=== PATIENT | male | born 1935 | race Caucasian/White ===

== ENCOUNTER 2022-12-25 10:35 | Day surgery (SDC) | payer MEDICARE, SELFPAY ==
--- NOTE | 2022-12-25 11:28 | W.ANESPRE ---
General Info Height: 5 ft 6 in Weight: 72.575 kg Body Mass Index (BMI): 25.8 Surgical Procedure: Operation Date: 12/25/22 12:55 Proposed Procedure Side Surgeon p Cataract Extraction with IOL Implant Left Lan Marcano MD Meds Allergies and Home Medications Allergies Allergy/AdvReac Type Severity Reaction Status Date / Time No Known Allergies Allergy Unverified 12/22/22 12:17 Home Medication Medication Instructions Recorded aspirin 81 mg capsule,delayed 81 mg PO DAILY 12/22/22 release atorvastatin 40 mg tablet 40 mg PO DAILY 12/22/22 calcium carbonate 600 mg calcium 600 mg PO BID 12/22/22 (1,500 mg) tablet fluticasone 250 mcg-salmeterol 50 1 inh inhalation BID 12/22/22 mcg/dose blistr powdr for inhalation (Advair Diskus) montelukast 10 mg tablet 10 mg PO DAILY 12/22/22 multivitamin 1 tab PO DAILY 12/22/22 Current Visit Medications: Current Medications Generic Name Dose Route Start Last Admin Trade Name Freq PRN Reason Stop Dose Admin Acetaminophen 1,000 mg 12/25/22 06:00 Acetaminophen 500 Mg Tab PO Q4H PRN PRN Miscellaneous Medication 0 ml 12/25/22 06:00 Tropicam./Phenyleph. 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 [place] [facility] [place] f/u per pt. Allergic rhinitis Asthma Cataract COPD (chronic obstructive pulmonary disease) [place] Disorder of oral soft tissue pt. denies this Disorder of skin and subcutaneous tissue Diverticular disease Elevated blood pressure reading in office without diagnosis of hypertension Epistaxis Excessive thirst Agueda type 2a hyperlipoproteinemia Insomnia Primary malignant neoplasm of prostate Raised prostate specific antigen Sleep disorder Tinnitus Tracheobronchitis Type 2 diabetes mellitus without complication Urticaria Tobacco Smoking/Tobacco Use Status: Never Alcohol Alcohol Intake: never Substance Use Substance use: Never Substance use type: does not use Vital Signs and Lab Results Lab Results Blood Type / Crossmatch: No Data to Display Complete Blood Count: No Data to Display Complete Metabolic Panel: No Data to Display Liver Function Panel: No Data to Display Coagulation Panel: No Data to Display Cardiac Panel: No Data to Display Arterial Blood Gas: No Data to Display Venous Blood Gas: No Data to Display Pancreas Panel: No Data to Display Thyroid Panel: No Data to Display Infectious Disease: No Data to Display Blood Cultures: No Data to Display Toxicology Panel: No Data to Display Imaging and Studies Imaging and Studies Study information below may be from another EMR and interpreted by another provider. Please see original notes in EMR for more complete details. Echocardiogram Summary: 09/20/21 echo reviewed from [facility] in [facility]; EF 65% no valvular disease, please review in [facility] CT Summary: 05/19/22 CT angio abdomen & pelvis review; AAA stable post repair with no endovascular leak present. Please review in [facility] records in [facility] Anesthesia Assessment and Plan Anesthesia History Personal History: No History of Anesthesia Complications Family History: No Family History of Anesthesia Complications Exercise Tolerance Exercise Tolerance: Metabolic Equivalents>4 Pertinent Negatives Pertinent Negatives: No Symptoms of GERD and No Major Pulmonary Symptoms or Complaints Cardiac & Pulmonary Exam Cardiac Exam: Normal S1/S2 Heart Sounds Pulmonary Exam: Clear Bilateral Breath Sounds Implantable Cardiac Device Does patient have a Pacemaker or an ICD?: No Airway Exam Mallampati Class: 2 Mouth Opening: Normal (> 3cm) Thyromental Distance: Greater than 3 cm Neck Range of Motion: Full ROM Neck Circumference: Normal Teeth Condition: Normal Dentition ASA Classification ASA Score: ASA 3 NPO Status NPO Status: NPO Clears >2 hours, Solids >8 hours Anesthesia Plan Resuscitation Status: Full Code Anesthesia Technique: MAC Anesthesia Airway Planned: Natural Airway Monitors Used: Standard Monitors
[2022-12-25] MEDS: Tropicam./Phenyleph. (1/2.5%) 5 ML BTL OS ×3 (11:45→12:00)
[2022-12-25 11:47] VITALS: BP 187/74; PULSE 62; RESP 18; TEMP 36.5; O2SAT 95
--- NOTE | 2022-12-25 11:57 | W.ANESPRE ---
General Info Date of Service Date Performed: 12/25/22 Height: 5 ft 6 in Weight: 71.6 kg Body Mass Index (BMI): 25.4 Surgical Procedure: Operation Date: 12/25/22 12:55 Proposed Procedure Side Surgeon p Cataract Extraction with IOL Implant Left Lan Marcano MD Meds Allergies and Home Medications Allergies Allergy/AdvReac Type Severity Reaction Status Date / Time No Known Allergies Allergy Unverified 12/22/22 12:17 Home Medication Medication Instructions Recorded aspirin 81 mg capsule,delayed 81 mg PO DAILY 12/22/22 release atorvastatin 40 mg tablet 40 mg PO DAILY 12/22/22 calcium carbonate 600 mg calcium 600 mg PO BID 12/22/22 (1,500 mg) tablet fluticasone 250 mcg-salmeterol 50 1 inh inhalation BID 12/22/22 mcg/dose blistr powdr for inhalation (Advair Diskus) montelukast 10 mg tablet 10 mg PO DAILY 12/22/22 multivitamin 1 tab PO DAILY 12/22/22 Current Visit Medications: Current Medications Generic Name Dose Route Start Last Admin Trade Name Freq PRN Reason Stop Dose Admin Acetaminophen 1,000 mg 12/25/22 06:00 Acetaminophen 500 Mg Tab PO Q4H PRN PRN Miscellaneous Medication 0 ml 12/25/22 06:00 12/25/22 11:52 Tropicam./Phenyleph. 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 [facility] [place] per pt. Allergic rhinitis Asthma Cataract COPD (chronic obstructive pulmonary disease) [place] Disorder of oral soft tissue pt. denies this Disorder of skin and subcutaneous tissue Diverticular disease Elevated blood pressure reading in office without diagnosis of hypertension Epistaxis Excessive thirst Agueda type 2a hyperlipoproteinemia Insomnia Primary malignant neoplasm of prostate Raised prostate specific antigen Sleep disorder Tinnitus Tracheobronchitis Type 2 diabetes mellitus without complication Urticaria Tobacco Smoking/Tobacco Use Status: Never Alcohol Alcohol Intake: never Substance Use Substance use: Never Substance use type: does not use Vital Signs and Lab Results Vital Signs Most Recent Vital Signs in EMR: Most Recent Vital Signs Temp Pulse Resp BP Pulse Ox 36.5 C 62 18 187/74 H 95 12/25/22 11:47 12/25/22 11:47 12/25/22 11:47 12/25/22 11:47 12/25/22 11:47 Lab Results Blood Type / Crossmatch: No Data to Display Complete Blood Count: No Data to Display Complete Metabolic Panel: No Data to Display Liver Function Panel: No Data to Display Coagulation Panel: No Data to Display Cardiac Panel: No Data to Display Arterial Blood Gas: No Data to Display Venous Blood Gas: No Data to Display Pancreas Panel: No Data to Display Thyroid Panel: No Data to Display Infectious Disease: No Data to Display Blood Cultures: No Data to Display Toxicology Panel: No Data to Display Imaging and Studies Imaging and Studies Study information below may be from another EMR and interpreted by another provider. Please see original notes in EMR for more complete details. Echocardiogram Summary: 09/20/21 echo reviewed from [facility] in [facility]; EF 65% no valvular disease, please review in [facility] CT Summary: 05/19/22 CT angio abdomen & pelvis review; AAA stable post repair with no endovascular leak present. Please review in [facility] records in [facility] Anesthesia Assessment and Plan Anesthesia History Personal History: No History of Anesthesia Complications Family History: No Family History of Anesthesia Complications Exercise Tolerance Exercise Tolerance: Metabolic Equivalents>4 Pertinent Negatives Pertinent Negatives: No Symptoms of GERD Cardiac & Pulmonary Exam Cardiac Exam: Normal S1/S2 Heart Sounds and Known Innocent Murmur Pulmonary Exam: Clear Bilateral Breath Sounds Implantable Cardiac Device Does patient have a Pacemaker or an ICD?: No Airway Exam Known Difficult Airway: No Mallampati Class: 2 Mouth Opening: Normal (> 3cm) Thyromental Distance: Greater than 3 cm Neck Range of Motion: Full ROM Neck Circumference: Normal Teeth Condition: Normal Dentition ASA Classification ASA Score: ASA 3 Emergency Case?: No NPO Status NPO Status: NPO Clears >2 hours, Solids >8 hours Anesthesia Plan Resuscitation Status: Full Code Anesthesia Technique: MAC Anesthesia Airway Planned: Natural Airway Monitors Used: Standard Monitors Preoperative Comments:: Had aortic aneurysm repair 09/25. No issues of late. Confirmed with Dr Marcano surgery may be longer. Gave MKO due to elevated BP. Pt agrees.
[2022-12-25 12:03] VITALS: BP 191/87; PULSE 63
[2022-12-25 12:20] VITALS: BMI 25.4
[2022-12-25] MEDS: Tetracaine 0.5% 4 ML BTL OS (12:47)
[2022-12-25] MEDS: Balanced Salt Soln.-PLUS 500 ML BAG (12:47)
[2022-12-25] MEDS: Lidocaine 2% Jelly 6 ML SYR (12:48)
[2022-12-25] MEDS: Duovisc Viscoelastic System EACH 1 EACH (12:48)
[2022-12-25] MEDS: Povidone-Iodine Ophth 30 ML BTL (12:49)
[2022-12-25] MEDS: Trypan Blue 0.06% 0.5 ML SYR (12:49)
[2022-12-25] MEDS: Phenylephrine/Lidocaine (15/10) MG/ML 1 ML VIAL (12:49)
[2022-12-25] MEDS: Lidocaine 1% Pres-Free 5 ML VIAL (12:50)
[2022-12-25 13:41] VITALS: BP 171/80; PULSE 64; RESP 16; TEMP 37; O2SAT 95
--- NOTE | 2022-12-25 13:42 | PDOC.DSDIS_ITS ---
Date of service: 12/25/22 Time of Service: 13:42 Discharge Plan Disposition Patient Disposition: Home Discharge Details Attending Provider: Lan Marcano Primary Care Provider: Eduar [facility] Meds and New Rx's Prescriptions: No Action atorvastatin 40 mg Tablet 40 mg PO DAILY fluticasone propion-salmeterol [Advair Diskus] 250-50 mcg/dose Blister With Device 1 inh INHALATION BID aspirin 81 mg Capsule,Delayed Release(Dr/Ec) 81 mg PO DAILY multivitamin Tablet 1 tab PO DAILY calcium carbonate 600 mg calcium (1,500 mg) Tablet 600 mg PO BID montelukast 10 mg Tablet 10 mg PO DAILY Discharge Instructions Stand Alone Forms: Post-op Topical Cataract, Autumn Comer (DSU) Discharge Orders Discharge Orders: Discharge Order (Routine); Ordered 12/25/22 Ordered By: Lan Marcano DS: Diagnosis Discharge Diagnosis (1) Nuclear age-related cataract, left eye: Status: Resolved
--- NOTE | 2022-12-25 13:43 | ROE_ITS ---
Date of service: 12/25/22 Time of Service: 13:43 Operative Note Operative Note DATE OF PROCEDURE: 12/25/22 PRE-OP DIAGNOSIS: Dense nuclear cataract, left eye Poorly dilating pupil, left eye Absent red reflex, left eye POST-OP DIAGNOSIS: same PROCEDURE: Cataract extraction using phacoemulsification with intraocular lens implant, left eye SURGEON: Lan Marcano ANESTHESIA TYPE: Local By Surgeon and MAC Refer to Anesthesia Record PATHOLOGY: none sent COMPLICATIONS: None Patient was transported to: same day Patient's condition: stable Implants: Marshal and Marshal Tecnis Eyhance [id number] Indications: Progressive decreased vision due to cataract, left eye Procedure Description: CATARACT SURGERY OPERATIVE REPORT PREOPERATIVE DIAGNOSIS: 1. Dense nuclear cataract, left eye 2. Poorly dilating pupil, left eye 3. Absent red reflex, left eye secondary to cataract POSTOPERATIVE DIAGNOSIS: Same OPERATION: 1. Cataract extraction using phacoemulsification with posterior chamber intraocular lens implant, left eye. 2. Very dilation and iris stabilization with 6.25 mm pupillary expansion device 3. Capsular staining with VisionBlue IOL: IOL Field Service Technician Poultry/Model: Marshal & Marshal Tecnis Eyhance DIB00 IOL Power: + 30.0 diopters IOL Serial Number: [id number] Optic Diameter: 6.0 mm Haptic/Overall Diameter: 13.0 mm PHACO INFO: Junior Centurion Vision System with OZil and Active Fluidics Cumulative Dispersed Energy (CDE): 43.36 seconds SURGEON: Lan Marcano MD, SUNDAR ANESTHESIA: Monitored A [facility] (MAC), with local sub-tenon's anesthetic infiltration COMPLICATIONS: None SPECIMENS: None INDICATIONS FOR PROCEDURE: The patient is an 87-year-old gentleman with 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 He has previously undergone cataract surgery in the right eye in approximately 2009. He has developed a very dense nuclear cataract in the left eye with shallow anterior chamber. He has a history of amblyopia, so postoperative visual acuity will be significantly limited by the pre-existing amblyopia. However, cataract surgery is suggested in attempt to reduce the risk of acute angle-closure glaucoma, and development of hypermature cataract with phacolytic glaucoma. PROCEDURE: The correct surgical eye was identified and marked as the left eye and the pupil was dilated in the preoperative area using mydriatics and cycloplegics. The dilated pupil size was 4.5 to continue mm. Oral sedation was administered in the form of an Imprimis MKO Melt (midazolam 3mg/ketamine 25mg/ondansetron 2mg). The patient was brought to the operating room where cardiopulmonary monitoring was instituted and surgical time-out was performed, confirming the correct operative eye and IOL power. Topical anesthesia was administered and ophthalmic povidone-iodine 5% was i nstilled into the conjunctival fornices. Lidocaine gel was applied to the cornea and the luis-ocular area was prepped with Betadine 10% solution and draped in the usual sterile fashion for intraocular surgery, including an aperture drape. A Tegaderm transparent film dressing was cut in half and used to cover the lashes and lid margins. Care was taken to sequester the lashes and lid margins under the Tegaderm dressing. A lid speculum was placed between the lids of the operative eye and the Junior LuxOR Revalia operating microscope was maneuvered into position. The cornea was noted to have dense peripheral arcus, with a significant generalized haze as well. Visualization of the anterior chamber was poor. Diane scissors were then used to make a conjunctival buttonhole approximately 6mm posterior to the limbus in the inferonasal quadrant. Blunt dissection was carried out to expose bare sclera, and a blunt-tipped sub-tenon?s anesthesia cannula was introduced and passed posteriorly along the globe where non- preserved plain lidocaine was injected into posterior sub-Tenon?s space. A sideport knife was used to make a paracentesis port superiorly/superiortemporally. Intraocular phenylephrine/lidocaine was injected int the anterior chamber.. The anterior chamber was filled with viscoelastic. A keratome knife was used to construct a 2-plane near-clear corneal tunnel extending 2.0mm into clear cornea temporally. A 6.25 mm pupil expansion device was inserted into the pupillary space and engaged with the Kuglen hook. The irrigation/aspiration handpiece was then used to remove the viscoelastic and the anterior chamber. Air was then injected into the anterior chamber, followed by VisionBlue which was painted over the anterior lens capsule and then irrigated out with balanced salt solution. A flap was raised on the anterior capsule and capsulorhexis forceps were used to complete a continuous curvilinear capsulorhexis of 5.0 mm. The anterior capsule was noted to be quite thin with significant generalized zonular laxity. Balanced salt solution was then used to perform cortical cleaving hydrodissection and nuclear hydrodelineation until the lens could be freely ro tated within the capsular bag. The lens nucleus was then disassembled and removed within the capsular bag and iris plane using phacoemulsification. A deep central groove was initially sculpted into the nucleus and nuclear splitters were used to crack the nucleus into 2 halves, at which point additional Viscoat was injected into the anterior chamber and additional Westlake dissection was carried out. The lens was rotated 180 degrees and cracked again. The nucleus was then rotated 90 degrees and another deep groove was sculpted into 1 Stepan nucleus and nuclear splitters were then used to crack into quadrants. Multiple subchops were then used to break the nuclear quadrants into smaller fragments, under the protection of additional Viscoat. Residual cortical material was removed using the 45-degree angled silicone I/A tip with 0.3mm port. There was essentially no residual cortical material after nucleus removal.. The capsular bag was then inflated and the anterior chamber deepened with viscoelastic. The lens implant described above was inserted into the capsular bag using the Marshal and Marshal Simplicity pre-loaded injector. . A Kuglen hook was used to dial the IOL into position. The pupil expansion device was then removed in the reverse order of its insertion. Residual viscoelastic was then removed first from posterior to the IOL, then from the anterior chamber using the I/A handpiece. The lens implant was noted to center nicely within the capsular bag. The incisions were stromally hydrated, and the anterior chamber was reformed using BSS. Then 0.5cc of moxifloxacin 1.0mg/ml were injected into the capsular bag and anterior chamber. The incisions were checked with a Weck spear and found to be secure. Several drops of ophthalmic povidone-iodine 5% were then applied to the eye followed by two drops of Imprimis combination prednisolone/moxifloxacin/nepafenac solution. The drapes were removed and a clear plastic protective eye shield was placed over the eye. The patient was then returned to Same Day Surgery in stable condition.
--- NOTE | 2022-12-25 14:01 | ANES.POST_ITS ---
Postoperative Evaluation Date, Time and Location Date Performed: 12/25/22 Time Performed: 14:01 Patient Location: Day Surgery Unit Vital Signs Most Recent Imported Vital Signs: Most Recent Vital Signs Temp Pulse Resp BP Pulse Ox 37 C 64 16 171/80 H 95 12/25/22 13:41 12/25/22 13:41 12/25/22 13:41 12/25/22 13:41 12/25/22 13:41 Pain Score Most Recent Pain Score: Most Recent Pain Score Pain Level 0 12/25/22 13:41 Assessment Mental Status: Awake (Alert & Oriented to Patient Baseline) Airway and Respiratory Function: Patent airway with normal (patient baseline) respiratory exam Cardiovascular Function: Hemodynamically Stable Hydration Status: Adequately Hydrated Nausea & Vomiting: No Nausea or Vomiting Pain: Pt. Denies Any Pain Peripheral Nerve Block: Patient did not receive a nerve block Teaching Patient Teaching: Advised to seek followup for the following concerns (See exp lanation) Concerns: Poorly Controlled Hypertension Postoperative Comments:: discused hypertension with pt and son. Advised follow up with pcp to adress this . Is currently on no meds for htn
[2022-12-25 14:06] VITALS: BP 164/78; PULSE 67; RESP 16; TEMP 36.4; O2SAT 94
== END 2022-12-25 14:18 | disposition home or self-care (01) ==
PROVIDERS: PCP Family Medicine; Visit Provider Ophthalmology
PROC: (CPT 66982; principal; 2022-12-25 12:45)
DX: H25.12 Age-related nuclear cataract, left eye (principal); H57.03 Miosis; H26.8 Other specified cataract
CPT/HCPCS: 66982; V2632